=== PATIENT | female | born 1945 ===

== ENCOUNTER 2017-06-19 11:10 | Emergency (ER) | payer MEDICARE, MEDICAID ==
[2017-06-19 11:20] VITALS: TEMP 97.4; O2SAT 98
--- NOTE | 2017-06-19 12:13 | C.PDOC ---
History Of Present Illness 71 yo female w/PMhx of TIA, come in for evaluation of Right knee puncture wound sustained yesterday evening at home. Pt sts, "picture frame broke and glass puncture my knee". Pt sts, noted bloody oozing from wound since yesterday would not stop. Pt admits, take anticoagulation therapy. Otherwise, pt denies deformity, weakness, sensory or vascular deficits to Right knee and leg. Ambulate to ED for evaluation, not in any apparent distress. Time Seen by Provider: 06/19/17 11:40 Chief Complaint (Nursing): Abnormal Skin Integrity History Per: Patient History/Exam Limitations: no limitations Onset/Duration Of Symptoms: Days Current Symptoms Are (Timing): Still Present Location Of Injury: Right: Knee Quality Of Symptoms: Painful Past Medical History Reviewed: Historical Data, Nursing Documentation, Vital Signs Vital Signs: Last Vital Signs Temp 97.4 F L 06/19/17 11:19 Pulse 75 06/19/17 12:23 Resp 18 06/19/17 12:23 BP 136/75 06/19/17 12:23 Pulse Ox 98 06/19/17 12:27 - Medical History PMH: Atrial Fibrillation, Cardia Arrhythmia (tachycardia), HTN Surgical History: No Surg Hx Family History: States: No Known Family Hx - Social History Hx Alcohol Use: No Hx Substance Use: No - Immunization History Hx Tetanus Toxoid Vaccination: No Hx Influenza Vaccination: Yes Hx Pneumococcal Vaccination: No Review Of Systems Constitutional: Negative for: Fever, Chills Musculoskeletal: Positive for: Leg Pain Skin: Negative for: Rash Neurological: Negative for: Weakness, Numbness Physical Exam - Physical Exam Appears: Well, Non-toxic, No Acute Distress Skin: Normal Color, Warm, Other (Right distal femur: small puncture wound over anterior aspect, continous bloody oozing from wound. NO wound FB visualized, no deformity.) Extremity: Normal ROM (RLE, no neurovascular deficits.), Tenderness (mild Right distal femur.), No Calf Tenderness, No Deformity, No Swelling Neurological/Psych: Oriented x3, Normal Speech, Normal Motor, Normal Sensation, Normal Reflexes ED Course And Treatment O2 Sat by Pulse Oximetry: 98 (RA) Pulse Ox Interpretation: Normal - Other Rad Knee, Right X-Ray: Interpreted by Me, Viewed By Me Interpretation: (-) acute fx or dislocation, no FB Progress Note: On re-eavluation, pt is afebrile, hemodynamicaly stable. NOn- toxic. Ambulatory in ED with stable gait. Right knee; exam c/w puncture wound s/p suture closure. FAROM, no neurovascular deficits. Imaging review (-) FB noted. Pt advised on wound care. ref. to F/u with PMD in 2 days for wound check. return to ED if any worsening or new changes. Laceration - Laceration Repair Right knee Wound Length (In cm): 1 Description Of Wound: Linear Anesthesia: Lidocaine 1% Wound Examination: Irrigated With Saline, No FB With Wound Exploration, No Tendon Injury With Wound Exploration Wound Closure: Suture (#1) Suture Technique And Material Used: Interrupted (figure "8"), Nylon (4-0) Wound Complexity: Simple Disposition Counseled Patient/Family Regarding: Studies Performed, Diagnosis, Need For Followup - Disposition Referrals: [facility] [Outside] Disposition: HOME/ ROUTINE Disposition Time: 12:17 Condition: STABLE Additional Instructions: Keep wound clean, dry Light duty to Right leg Suture removal in 7 days Follow up with PMD in 2 days for re-evaluation. Return to ED if any worsening or new changes. Instructions: Laceration (ED) Forms: [employer] (Malay) Print Language: MALTESE - Clinical Impression Clinical Impression: Laceration - injury - PA / [facility] / Resident Statement MD/DO has reviewed & agrees with the documentation as recorded. - Scribe Statement The provider has reviewed the documentation as recorded by the Roseanna Fraser All medical record entries made by the Livanibdelicia were at my direction and personally dictated by me. I have reviewed the chart and agree that the record accurately reflects my personal performance of the history, physical exam, medical decision making, and the department course for this patient. I have also personally directed, reviewed, and agree with the discharge instructions and disposition.
[2017-06-19 12:24] VITALS: BP 136/75; PULSE 75; RESP 18
--- NOTE | 2017-06-19 14:25 | RAD ---
PROCEDURE: Right Knee Radiographs. HISTORY: injury COMPARISON: None. FINDINGS: BONES: Medial femoral condylar spurring No fracture. JOINTS: Mild medial femoral tibial osteoarthritis. JOINT EFFUSION: None. OTHER FINDINGS: No radiopaque foreign body appreciated IMPRESSION: No radiopaque foreign body. No osseous interruption. Mild medial femoral tibial osteoarthrosis
== END 2017-06-19 12:25 | disposition home or self-care (01) ==
LOC: C.ER 11:10
DX: S81.031A Puncture wound without foreign body, right knee, initial encounter (principal); W25.XXXA Contact with sharp glass, initial encounter; Y92.009 Unspecified place in unspecified non-institutional (private) residence as the place of occurrence of the external cause

== ENCOUNTER 2017-06-27 12:53 | Emergency (ER) | payer MEDICARE, MEDICAID ==
[2017-06-27 13:12] VITALS: BP 180/70; PULSE 47; RESP 18; TEMP 97.6; O2SAT 100; BMI 26.5
--- NOTE | 2017-06-27 16:15 | C.PDOC ---
History Of Present Illness 71 year old female presents to the ED for suture removal. Patient sustained laceration to her knee 1 week ago which was repaired at that time. She has no complaints. Time Seen by Provider: 06/27/17 13:06 Chief Complaint (Nursing): Suture/Staple Removal History Per: Patient History/Exam Limitations: no limitations Location Of Injury: Right: Knee Pain Scale Rating Of: 0 Past Medical History Reviewed: Historical Data, Nursing Documentation, Vital Signs Vital Signs: Last Vital Signs Temp 97.6 F 06/27/17 13:07 Pulse 47 L 06/27/17 13:07 Resp 18 06/27/17 13:07 BP 180/70 H 06/27/17 13:07 Pulse Ox 100 06/27/17 17:16 - Medical History PMH: Atrial Fibrillation, Cardia Arrhythmia (tachycardia), HTN Family History: States: Unknown Family Hx - Social History Hx Alcohol Use: No Hx Substance Use: No - Immunization History Hx Tetanus Toxoid Vaccination: Yes Hx Influenza Vaccination: No Hx Pneumococcal Vaccination: No Review Of Systems Except As Marked, All Systems Reviewed And Found Negative. Skin: Positive for: Other (Laceration (repaired)) Physical Exam - Physical Exam Appears: Well, No Acute Distress Skin: Normal Color, Warm, Dry Head: Atraumatic, Normacephalic Eye(s): bilateral: Normal Inspection Nose: Normal Oral Mucosa: Moist Neck: Normal ROM Chest: Symmetrical Extremity: Other (Right anterior knee with 1 running suture, clean, dry, and intact.) Neurological/Psych: Oriented x3, Normal Speech Gait: Steady ED Course And Treatment O2 Sat by Pulse Oximetry: 100 Progress Note: Removed suture without difficulty Disposition Counseled Patient/Family Regarding: Diagnosis, Need For Followup - Disposition Disposition: HOME/ ROUTINE Disposition Time: 13:12 Condition: GOOD Instructions: Stitches Removal (ED) Forms: [employer] (Malay) Print Language: [place] CITIZEN - POA Present On Arrival: None - Clinical Impression Clinical Impression: Removal of suture - Scribe Statement The provider has reviewed the documentation as recorded by the Livanibdelicia Gonzalez
== END 2017-06-27 13:14 | disposition home or self-care (01) ==
LOC: C.ER 12:53
DX: Z48.02 Encounter for removal of sutures (principal)